=== PATIENT | female | born 1975 | race Caucasian/White ===

== ENCOUNTER 2022-04-17 13:16 | Emergency (ER) | payer BC ==
[2022-04-17] MEDS ORDERED: LIPITOR20 M2 PO (13:27)
[2022-04-17] MEDS ORDERED: GABAPENTIN100 MG PO (13:27)
[2022-04-17] MEDS ORDERED: SERTRALINE50 MG PO (13:27)
[2022-04-17] MEDS ORDERED: LEVO-T50 MCG PO (13:28)
[2022-04-17] MEDS ORDERED: TOPROL XL 25MG25 MG PO (13:28)
[2022-04-17 14:27] LABS: BASO # 0.03 K/mm3 (0.02-0.10); EOS # 0.26 K/mm3 (0.04-0.40); EOS % 3.1 % (1.0-5.0); HEMATOCRIT 42.5 % (37.0-47.0); HEMOGLOBIN 13.9 g/dL (12.5-16.0); LYMPH# 2.74 K/mm3 (1.50-4.00); MEAN CELL VOLUME 88 fl (78-100); MEAN CORPUSCULAR HEMOGLOBIN 29 pg (27-31); MEAN CORPUSCULAR HGB CONC 33 g/dL (33-37); MEAN PLATELET VOLUME 8.7 fl (7.4-10.4); NEU # 4.83 K/mm3 (1.40-6.50); PLATELET COUNT 360 K/mm3 (130-400); RED BLOOD COUNT 4.83 M/mm3 (4.10-5.30); RED CELL DISTRIBUTION WIDTH 12.8 % (11.5-14.5); WHITE BLOOD COUNT 8.4 K/mm3 (4.8-10.8)
[2022-04-17 14:37] LABS: ALBUMIN 4.3 g/dL (3.5-5.0)
[2022-04-17 14:38] LABS: POTASSIUM 3.8 mmol/L (3.5-5.1)
[2022-04-17 14:39] LABS: CALCIUM 9.6 mg/dL (8.3-10.5)
[2022-04-17 14:42] LABS: TOTAL BILIRUBIN 0.5 mg/dL (0.2-1.2)
[2022-04-17 15:07] LABS: URINE APPEARANCE CLOUDY; URINE COLOR YELLOW
[2022-04-17 15:08] LABS: PH-URINE 7.5 (5.0 - 8.0); URINE BILIRUBIN NEGATIVE (NEGATIVE); URINE BLOOD 250 ery/uL (NEGATIVE); URINE GLUCOSE NEGATIVE (NEGATIVE); URINE KETONE NEGATIVE (NEGATIVE); URINE LEUKOCYTE ESTERASE TRACE (NEGATIVE); URINE MUCUS PRESENT (NOT PRESENT); URINE NITRATE NEGATIVE (NEGATIVE); URINE PROTEIN(semi-quant) TRACE (NEGATIVE); URINE UROBILINOGEN NORMAL (NORMAL)
[2022-04-17] MEDS ORDERED: CEFDINIR300 MG PO (15:29)
[2022-04-17] MEDS ORDERED: NORCO 325 MG-51 TA1 PO (15:29)
[2022-04-17] MEDS ORDERED: ONDANSETRON HYDR4 MG PO (15:29)
[2022-04-17] MEDS ORDERED: FLOMAX0.4 MG PO (15:29)
[2022-04-17 15:49] VITALS: BP 110/65
== END 2022-04-17 15:48 | disposition home or self-care (01) ==
LOC: ED 13:16
PROVIDERS: Physician Assistant
DX: N13.2 Hydronephrosis with renal and ureteral calculous obstruction (principal); Z28.310 Unvaccinated for COVID-19
CPT/HCPCS: J0696; J1644; J1885; J2405; J7030

== ENCOUNTER 2022-11-06 08:06 | Emergency (ER) | payer BC ==
[~2022-11-06 08:06] MED LIST: CEFDINIR300 MG PO; FLOMAX0.4 MG PO; GABAPENTIN100 MG PO; LEVO-T50 MCG PO; LIPITOR20 M2 PO; NORCO 325 MG-51 TA1 PO; ONDANSETRON HYDR4 MG PO; SERTRALINE50 MG PO; TOPROL XL 25MG25 MG PO
[2022-11-06 08:49] LABS: BASO # 0.01 K/mm3 (0.02-0.10); EOS # 0.24 K/mm3 (0.04-0.40); EOS % 2.9 % (1.0-5.0); HEMATOCRIT 44.2 % (37.0-47.0); HEMOGLOBIN 14.3 g/dL (12.5-16.0); LYMPH# 2.83 K/mm3 (1.50-4.00); MEAN CELL VOLUME 89 fl (78-100); MEAN CORPUSCULAR HEMOGLOBIN 29 pg (27-31); MEAN CORPUSCULAR HGB CONC 32 g/dL (33-37); MEAN PLATELET VOLUME 8.8 fl (7.4-10.4); MONO # 0.35 K/mm3 (0.20-0.80); NEU # 4.98 K/mm3 (1.40-6.50); PLATELET COUNT 355 K/mm3 (130-400); RED BLOOD COUNT 4.98 M/mm3 (4.10-5.30); RED CELL DISTRIBUTION WIDTH 13.1 % (11.5-14.5); WHITE BLOOD COUNT 8.4 K/mm3 (4.8-10.8)
[2022-11-06 08:54] LABS: ALBUMIN 4.3 g/dL (3.5-5.0); POTASSIUM 4.1 mmol/L (3.5-5.1)
[2022-11-06 08:55] LABS: CALCIUM 9.8 mg/dL (8.3-10.5)
[2022-11-06 08:56] LABS: TOTAL PROTEIN 7.2 g/dL (6.4-8.3)
[2022-11-06 08:58] LABS: TOTAL BILIRUBIN 0.4 mg/dL (0.2-1.2)
[2022-11-06 09:19] LABS: URINE APPEARANCE CLOUDY; URINE BILIRUBIN NEGATIVE (NEGATIVE); URINE BLOOD NEGATIVE (NEGATIVE); URINE COLOR YELLOW; URINE GLUCOSE NEGATIVE (NEGATIVE); URINE KETONE NEGATIVE (NEGATIVE); URINE LEUKOCYTE ESTERASE TRACE (NEGATIVE); URINE NITRATE NEGATIVE (NEGATIVE); URINE PROTEIN(semi-quant) 1+ (NEGATIVE); URINE UROBILINOGEN NORMAL (NORMAL)
[2022-11-06 11:39] VITALS: BP 147/91
== END 2022-11-06 11:08 | disposition home or self-care (01) ==
LOC: ED 08:06
PROVIDERS: Nurse Practitioner
DX: N13.9 Obstructive and reflux uropathy, unspecified (principal); N20.0 Calculus of kidney; Z28.310 Unvaccinated for COVID-19
CPT/HCPCS: J1885; J2405; J3010; J7030; Q9967